=== PATIENT | female | born 1970 | race Two or more races ===

== ENCOUNTER → 2017-02-25 | Outpatient (CLI) | payer OTHER | END | disposition home or self-care (01) | LOC: CFH 08:49 | PROVIDERS: ATTEND Family Medicine | DX: Z12.31 Encounter for screening mammogram for malignant neoplasm of breast (principal) | CPT/HCPCS: G0202 ==

== ENCOUNTER 2021-06-19 23:37 | Emergency (ER) | payer OTHER ==
[~2021-06-19] VITALS: Ht 154.9 cm; Wt 61.4 kg
--- NOTE | 2021-06-20 00:14 | NUR ---
COVID SWAB WAS COMPLETED AND WALKED TO LAB.
[2021-06-20 03:40] VITALS: BP 165/103
--- NOTE | 2021-06-20 03:40 | NUR ---
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 COME BACK DOWN FROM WORK FOR WORKMANS COMP AND D/C PAPERS.
== END 2021-06-20 00:16 | disposition home or self-care (01) ==
LOC: ED 23:40
DX: Z20.822 Contact with and (suspected) exposure to COVID-19 (principal)
CPT/HCPCS: 99283; U0003; U0005